=== PATIENT | female | born 1985 | race Two or more races ===

== ENCOUNTER 2018-11-23 08:47 | Outpatient (CLI) | payer OTHER | END 2018-11-23 15:15 | disposition home or self-care (01) | LOC: SONOGRAMA 08:47 | DX: E04.2 Nontoxic multinodular goiter (principal) ==

== ENCOUNTER 2020-02-17 11:49 | Outpatient (CLI) | payer OTHER | END 2020-02-17 11:56 | disposition home or self-care (01) | LOC: SONOGRAMA 11:49 | PROVIDERS: ATTEND Pathology Anatomic Pathology & Clinical Pathology | DX: E04.8 Other specified nontoxic goiter (principal) ==